=== PATIENT | male | born 1965 | race Two or more races ===

== ENCOUNTER 2023-12-07 07:12 | Day surgery (SDC) | payer OTHER, MEDICAID ==
[2023-12-07] VITALS (10 sets, daily range): BP systolic 101–123; BP diastolic 69–78; PULSE 58–65; RESP 11–16; TEMP 97.6; O2SAT 93–96
[~2023-12-07] VITALS: Ht 172.7 cm; Wt 89.8 kg
[~2023-12-07 07:12] MED LIST: ASPI-543 PO; ATOR40TA52 PO; EMPA1TAB3 PO; GABA-1250 PO; LOSA-534 PO; METF-929 PO; NITR0.4S29 SL
[2023-12-07] MEDS ORDERED: LIDOCAINE 2%HCL (LOCAL ANESTH.) INJ 10ml MDV ONE (07:49)
[2023-12-07] MEDS ORDERED: IODIXANOL 320MG/ML 100ML BTL IV ONE (07:50)
[2023-12-07] MEDS ORDERED: IOHEXOL 350 MG/ML 100ML IJ ONE (07:50)
[2023-12-07] MEDS ORDERED: HEPARIN IN NS 1000Units/500mL 1,500 ML ONE (07:50)
[2023-12-07] MEDS ORDERED: HEPARIN SODIUM (PORCINE) 5000 UNITS/ML 1ML VIAL ONE (08:38)
[2023-12-07] MEDS ORDERED: ANGIOMAX 250 MG VIAL IV ONE (08:38)
[2023-12-07] MEDS ORDERED: VERAPAMIL 2.5MG/ML INJ 2ML VIAL IV ONE (08:38)
[2023-12-07] MEDS ORDERED: SODIUM CHL 0.9% 0 ML ONE (08:39)
[2023-12-07] MEDS ORDERED: fentaNYL CITRATE 100 MCG/2 ML VL ONE (08:39)
[2023-12-07] MEDS ORDERED: MIDAZOLAM HCL 2MG/2ML 2ml VIAL (1mg/ml) ONE (08:39)
[2023-12-07] MEDS ORDERED: ATROPINE SULF 1 MG/10ml SYR ONE (09:07)
== END 2023-12-07 12:22 | disposition home or self-care (01) ==
LOC: CATH 07:12
PROVIDERS: ATTEND Internal Medicine
DX: R94.39 Abnormal result of other cardiovascular function study (principal); I25.110 Atherosclerotic heart disease of native coronary artery with unstable angina pectoris; I10 Essential (primary) hypertension; E11.9 Type 2 diabetes mellitus without complications; E78.00 Pure hypercholesterolemia, unspecified; Z79.82 Long term (current) use of aspirin; Z79.84 Long term (current) use of oral hypoglycemic drugs; Z79.899 Other long term (current) drug therapy; Z98.890 Other specified postprocedural states; Z72.0 Tobacco use
CPT/HCPCS: 93458; C1725; C1894; J1644; J2001; J2250; J3010; J7030; Q9967; 93005; 99152

== ENCOUNTER → 2024-11-22 | Outpatient (CLI) | payer MEDICAID ==
[2024-11-22 09:06] LABS: Basophils # (auto) 0 10 ^3/uL (0-0.2); Basophils % (auto) 0.4 % (0.0-2.0); Eosinophils # (auto) 0.2 10 ^3/uL (0-0.8); Eosinophils % (auto) 2.4 % (0.0-7.0); Hematocrit 46.4 % (41.0-53.0); Hemoglobin 16.2 g/dL (13.5-17.5); Lymphocytes # (auto) 1.7 10 ^3/uL (0.4-5.4); Lymphocytes % (auto) 26.2 % (10.0-50.0); Mean Corpuscular Hemoglobin 31.7 pg (28.0-32.0); Mean Corpuscular Volume 90.5 fL (80.0-100.0); Monocytes # (auto) 0.7 10 ^3/uL (0-1.3); Monocytes % (auto) 10.9 % (0.0-12.0); Neutrophils # (auto) 3.9 10 ^3/uL (1.6-8.6); Neutrophils % (auto) 60.1 % (37.0-80.0); Nucleated Red Blood Cells % 0.1 %; Platelet Count (auto) 216 10^3/uL (140-450); Red Blood Cells 5.13 10^6/uL (4.5-5.90); Red Cell Distribution Width 12.5 % (11.8-14.3); White Blood Cell 6.5 10^3/uL (4.4-10.8)
[2024-11-22 09:46] LABS: Alanine Aminotransferase 16 U/L (7-40); Albumin 4.3 g/dL (3.2-4.8); Alkaline Phosphatase 89 U/L (46-116); Anion Gap 5 (5-15); Aspartate Aminotransferase 14 U/L (13-40); BUN/Creatinine Ratio 17.6 (10.0-20.0); Blood Urea Nitrogen 18 mg/dL (9-23); CRP High Sensitivity 0.05 mg/dL (<1.0); Calcium 10.2 mg/dL (8.7-10.4); Carbon Dioxide 29 mmol/L (20-31); Chloride 105 mmol/L (98-107); LDL Cholesterol 59 mg/dL (< 100); Potassium 4.6 mmol/L (3.5-5.1); Sodium 139 mmol/L (136-145); Total Protein 6.6 g/dL (5.7-8.2); Triglycerides 129 mg/dL (< 150)
[2024-11-22 09:47] LABS: Bilirubin, Total 0.9 mg/dL (0.2-1.0); Cholesterol 120 mg/dL (< 200); HDL Cholesterol 44 mg/dL (40-59)
[2024-11-22 10:02] LABS: Glucose 132 mg/dL (74-106)
[2024-11-22 10:41] LABS: T3 Total 0.9 ng/mL (0.60-1.81)
[2024-11-22 10:42] LABS: Free T3 3.46 pg/mL (2.3-4.2)
[2024-11-22 17:15] LABS: Erythrocyte Sedimentation Rate 2 mm/hr (0-20)
== END | disposition home or self-care (01) ==
LOC: LAB 08:47
PROVIDERS: ATTEND Family Medicine
DX: I10 Essential (primary) hypertension (principal); R07.9 Chest pain, unspecified
CPT/HCPCS: 36415; 80053; 80061; 84443; 84480; 84481; 85025; 85652; 86141

== ENCOUNTER → 2025-02-01 | Outpatient (CLI) | payer MEDICAID ==
[2025-02-01 10:09] LABS: Alanine Aminotransferase 18 U/L (7-40); Alkaline Phosphatase 103 U/L (46-116); Anion Gap 9 (5-15); Calcium 10.3 mg/dL (8.7-10.4); Carbon Dioxide 28 mmol/L (20-31); Chloride 102 mmol/L (98-107); Potassium 4.7 mmol/L (3.5-5.1); Sodium 139 mmol/L (136-145)
[2025-02-01 10:10] LABS: BUN/Creatinine Ratio 19.2 (10.0-20.0); Blood Urea Nitrogen 19 mg/dL (9-23); Glucose 135 mg/dL (74-106); LDL Cholesterol 51 mg/dL (< 100); Total Protein 7.1 g/dL (5.7-8.2); Triglycerides 90 mg/dL (< 150)
[2025-02-01 10:11] LABS: Albumin 4.6 g/dL (3.2-4.8); Aspartate Aminotransferase 17 U/L (13-40); Cholesterol 106 mg/dL (< 200)
[2025-02-01 10:12] LABS: HDL Cholesterol 35 mg/dL (40-59)
== END | disposition home or self-care (01) ==
LOC: LAB 08:55
PROVIDERS: ATTEND Family Medicine
DX: I10 Essential (primary) hypertension (principal); E11.9 Type 2 diabetes mellitus without complications; M16.0 Bilateral primary osteoarthritis of hip; E78.2 Mixed hyperlipidemia
CPT/HCPCS: 36415; 80053; 80061; 82043; 83036

== ENCOUNTER 2025-05-17 08:28 | Day surgery (SDC) | payer MEDICAID ==
[2025-05-12 12:44] LABS: Hematocrit 49.0 % (41.0-53.0); Hemoglobin 17.0 g/dL (13.5-17.5); Mean Corpuscular Hemoglobin 30.8 pg (28.0-32.0); Mean Corpuscular Volume 89.0 fL (80.0-100.0); Nucleated Red Blood Cells % 0.1 %
[2025-05-12 12:55] LABS: INR 1.03 (0.9-1.15); Partial Thromboplastin Time 27.3 SEC (24.5-34.5); Prothrombin Time 10.9 sec (9.3-11.8)
[2025-05-12 13:46] LABS: Alanine Aminotransferase 16 U/L (7-40); Albumin 4.2 g/dL (3.2-4.8); Alkaline Phosphatase 77 U/L (46-116); Anion Gap 6 (5-15); BUN/Creatinine Ratio 11.7 (10.0-20.0); Blood Urea Nitrogen 11 mg/dL (9-23); Calcium 9.4 mg/dL (8.7-10.4); Carbon Dioxide 30 mmol/L (20-31); Chloride 103 mmol/L (98-107); Potassium 4.3 mmol/L (3.5-5.1); Sodium 139 mmol/L (136-145); Total Protein 6.9 g/dL (5.7-8.2)
[2025-05-12 13:47] LABS: Bilirubin, Total 0.7 mg/dL (0.2-1.0)
[2025-05-12 13:54] LABS: Glucose 110 mg/dL (74-106)
[2025-05-17] VITALS (7 sets, daily range): BP systolic 104–127; BP diastolic 66–76; PULSE 64–77; RESP 14–19; TEMP 97.3; O2SAT 93–100
[~2025-05-17] VITALS: Ht 175.3 cm; Wt 88.5 kg
[2025-05-17] MEDS ORDERED: HEPARIN IN NS 1000Units/500mL 1,500 ML ONE (12:20)
[2025-05-17] MEDS ORDERED: IODIXANOL 320MG/ML 100ML BTL IV ONE (12:20)
[2025-05-17] MEDS ORDERED: VERAPAMIL 2.5MG/ML INJ 2ML VIAL IV ONE (13:55)
[2025-05-17] MEDS ORDERED: ANGIOMAX 250 MG VIAL IV ONE (13:55)
[2025-05-17] MEDS ORDERED: MIDAZOLAM HCL 2MG/2ML 2ml VIAL (1mg/ml) ONE (13:55)
[2025-05-17] MEDS ORDERED: HEPARIN SODIUM (PORCINE) 5000 UNITS/ML 1ML VIAL ONE (13:55)
[2025-05-17] MEDS ORDERED: fentaNYL CITRATE 100 MCG/2 ML VL ONE (13:55)
[2025-05-17] MEDS ORDERED: LIDOCAINE 2%HCL (LOCAL ANESTH.) INJ 20ML MDV ONE (13:56)
[2025-05-17] MEDS ORDERED: SODIUM CHL 0.9% 0 ML ONE (13:56)
--- NOTE | 2025-05-17 14:58 | DVHOP2 ---
Operative Report - 2 Report Details Date: 05/17/25 Preop Diagnosis: CAD/peripheral vascular disease Postop Diagnosis: No significant coronary disease. No significant peripheral vascular disease. Surgeon: Elsa Green MD Anesthesiologist: Conscious sedation Anesthesia: Mac, Local Consent: The patient was informed of the risks and benefits of the procedure. These include but are not limited to complications of anesthesia, postoperative infection, incomplete relief of symptoms, recurrence of symptoms, damage to blood vessels, nerves and tendons, deep venous thrombosis, pulmonary embolism and possible need for repeat surgery in the future. Complications: No complications Findings: No significant peripheral vascular disease or coronary artery disease. Indications for Surgery: Claudication. Chest pain. Name of Procedure Performed Left heart catheterization. Bilateral cine coronary angiography. Left ventriculography. Peripheral angiographic evaluation and runoff from the aorta to distal extremities bilaterally. Procedure Details Procedure Details: Prior local anesthesia with 2% lidocaine to the right wrist and full informed consent obtained the patient was prepped and draped in the usual fashion followed by placement of a six [place] sheath into the radial artery followed by placement of a Hermes catheter through which ventriculography and cannulation of both right and left coronary ostia were performed without complications. We then placed a pigtail catheter into the distal aorta and performed an angiographic evaluation from the distal aorta to the level of the common femorals bilaterally. We then placed a six [place] sheath into the right femoral artery through which we then cannulated the iliac artery contralaterally and performed angiographic evaluation bilateral of the lower extremities with digital subtraction angiography of bilateral tibioperoneal trunks to the mid calf. Hemodynamics aortic blood pressure was 130/70 end-diastolic pressure was 16 without gradient across the aortic valve on pullback. Coronary anatomy: The RCA is a large vessel it is normal in its proximal mid an d distal segments. PDA and posterolateral branches are normal. Left main is large and normal. Left anterior descending coronary artery is a large vessel however ends in the proximal mid to distal segment of the anterior wall. It is normal in its prox imal mid and distal segments. The diagonals and septals are normal. The circumflex is large with two marginals free of significant disease. Ventriculography in the WILLIAMSON projection shows an EF of 60% Peripheral angiographic evaluation was also performed showing bilateral normal iliacs. Common iliacs internal iliacs and common femorals are normal. Distal aorta was normal The right femoral artery was then cannulated as mentioned and a runoff was performed. The profunda and superficial femoral artery are normal to the level of the knee. The tibioperoneal trunk and popliteal are all normal. Three- vessel runoff [id number] on the right leg The left common iliac common femoral internal iliac and profunda are all normal. The superficial femoral artery is normal. No significant stenosis noted. The left popliteal tibioperoneal trunk is normal. Three-vessel runoff from the mid calf down Impression: Normal left ventricular end-diastolic pressure at rest with normal ejection fraction. No significant CAD. No significant peripheral vascular disease. Recommendations continue medical therapy risk factor modification Condition Good Disposition Date of Service: May 17, 2025 Billing Provider: ELSA GREEN Sr., MD Cardiology Common Codes: 39643-HNDVELZ INP/OBS CARE (High) Cardiology Procedure Codes: 91363-LRTL HEART CATH W/INTRA INJ Peripheral Procedures Codes: 82488-[id number] RAD SUP/INTERP ELSA GREEN Sr., MD May 17, 2025 14:58
== END 2025-05-17 17:45 | disposition home or self-care (01) ==
LOC: CATH 08:28
PROVIDERS: ATTEND Internal Medicine
DX: R07.9 Chest pain, unspecified (principal); I25.10 Atherosclerotic heart disease of native coronary artery without angina pectoris; I73.9 Peripheral vascular disease, unspecified; I10 Essential (primary) hypertension; Z79.899 Other long term (current) drug therapy; Z98.890 Other specified postprocedural states
CPT/HCPCS: 36415; 80053; 85025; 85610; 85730; 93458; C1769; C1887; C1894; J1644; J2250; J3010; J7030; Q9967; 75625; 75716; 99152

== ENCOUNTER 2025-06-19 14:19 | Outpatient (CLI) | payer MEDICAID ==
[2025-06-19 15:19] LABS: Chloride 106 mmol/L (98-107); Potassium 4.8 mmol/L (3.5-5.1); Sodium 142 mmol/L (136-145)
[2025-06-19 15:20] LABS: Anion Gap 9 (5-15); Calcium 9.4 mg/dL (8.7-10.4); Carbon Dioxide 27 mmol/L (20-31)
[2025-06-19 15:25] LABS: Glucose 143 mg/dL (74-106)
[2025-06-19 15:26] LABS: BUN/Creatinine Ratio 12.7 (10.0-20.0); Blood Urea Nitrogen 15 mg/dL (9-23)
[2025-06-19 15:31] LABS: Microalb/Creat Ratio, Urine 6.0
== END 2025-06-19 17:00 | disposition home or self-care (01) ==
LOC: LAB 14:19
PROVIDERS: ATTEND Family Medicine
DX: E11.9 Type 2 diabetes mellitus without complications (principal)
CPT/HCPCS: 36415; 80048; 82043; 82570

== ENCOUNTER → 2025-07-07 | Outpatient (CLI) | payer MEDICAID ==
[2025-07-07 11:14] LABS: Alanine Aminotransferase 16 U/L (7-40); Albumin 4.4 g/dL (3.2-4.8); Alkaline Phosphatase 101 U/L (46-116); Anion Gap 10 (5-15); BUN/Creatinine Ratio 11.3 (10.0-20.0); Bilirubin, Total 1.0 mg/dL (0.2-1.0); Blood Urea Nitrogen 12 mg/dL (9-23); Calcium 9.7 mg/dL (8.7-10.4); Carbon Dioxide 28 mmol/L (20-31); Chloride 100 mmol/L (98-107); Cholesterol 145 mg/dL (< 200); HDL Cholesterol 44 mg/dL (40-59); Potassium 4.5 mmol/L (3.5-5.1); Sodium 138 mmol/L (136-145); Total Protein 7.3 g/dL (5.7-8.2)
[2025-07-07 11:17] LABS: Glucose 113 mg/dL (74-106); Triglycerides 160 mg/dL (< 150)
== END | disposition home or self-care (01) ==
LOC: LAB 10:00
PROVIDERS: ATTEND Family Medicine
DX: E11.9 Type 2 diabetes mellitus without complications (principal); E78.2 Mixed hyperlipidemia; M16.0 Bilateral primary osteoarthritis of hip
CPT/HCPCS: 36415; 80053; 80061; 80198; 83036; 84481